=== PATIENT | male | born 1975 | race Hispanic/Latino ===

== ENCOUNTER 2019-11-02 14:16 | Emergency (ER) | payer OTHER ==
[~2019-11-02] VITALS: Ht 182.9 cm; Wt 88.5 kg
--- NOTE | 2019-11-16 14:03 | Emergency Department Note ---
History of Present Illnes History of Present Illness Chief Complaint: COVID PUI History of Present Illness This is a 44 year old male TATBISMARK SOB. WENT TO A RAPID TESTING CLINIC TODAY AND TOLD HE IS COVID POSITIVE. CAME HOME AND CALLED 911. STATES HE IS TOO DIZZY TO DRIVE. PT AAOX4. NO ACUTE DISTRESS NOTED AT TIME OF TRIAGE. SATS 98% ROOM AIR. 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 Any updates have been documented here. Past Medical History Recent Fever: No Clinical Suspicion of Infectio: No New/Unexplained Change in Ment: No Past Medical History: None Other Surgery: RIGHT HAND FINGER SX Social History Smoking Cessation: Never Smoker Counseling Performed: No Alcohol Use: Social Any Illegal Drug Use: No TB Exposure/Symptoms: No Physically hurt or threatened: No Other Last Tetanus: 7 YEARS AGO Review of Systems Review of Systems Constitutional: Reports as per HPI EENTM: Reports no symptoms Cardiovascular: Reports no symptoms Respiratory: Reports as per HPI Gastrointestinal: Reports no symptoms Genitourinary: Reports no symptoms Musculoskeletal: Reports no symptoms Integumentary: Reports no symptoms Neurological: Reports no symptoms Psychological: Reports no symptoms Endocrine: Reports no symptoms Hematological/Lymphatic: Reports no symptoms Physical Exam Related Data Allergies: Coded Allergies: No Known Allergies (Unverified , 12/31/14) Triage Vital Signs Vital Signs Date Time Temp Pulse Resp B/P (MAP) Pulse Ox O2 Delivery O2 Flow Rate FiO2 11/02/19 14:22 98.9 100 18 127/86 98 Room Air Vital signs reviewed: Yes Physical Exam CONSTITUTIONAL Constitutional: Present well-developed, Present well-nourished HENT HENT: Present normocephalic, Present atraumatic, Present oropharynx clear/moist, Present nose normal HENT L/R: Present left ext ear normal, Present right ext ear normal EYES Eyes: Reports PERRL, Reports conjunctivae normal NECK Neck: Present ROM normal PULMONARY Pulmonary: Present effort normal, Present breath sounds normal CARDIOVASCULAR Cardiovascular: Present regular rhythm, Present heart sounds normal, Present capillary refill normal, Present normal rate GASTROINTESTINAL Abdominal: Present soft, Present nontender, Present bowel sounds normal GENITOURINARY Genitourinary: Present exam deferred SKIN Skin: Present warm, Present dry MUSCULOSKELETAL Musculoskeletal: Present ROM normal NEUROLOGICAL Neurological: Present alert, Present oriented x 3, Present no gross motor or sensory deficits PSYCHOLOGICAL Psychological: Present mood/affect normal, Present judgement normal Assessment & Plan Medical Decision Making MDM covid19 with mormal vitals, normal O2 saturation Reassessment Reassessment dc home, self-quarantine, proning, f/u pcp, rted prn Assessment & Plan Final Impression: (1) COVID-19 Depart Disposition: HOME, SELF-CARE Last Vital Signs Date Time Temp Pulse Resp B/P (MAP) Pulse Ox O2 Delivery O2 Flow Rate FiO2 11/02/19 14:22 98.9 100 18 127/86 98 Room Air Home Meds No Active Prescriptions or Reported Meds CACHORRO MINOR MD Nov 16, 2019 14:03
== END 2019-11-02 17:02 | disposition home or self-care (01) ==
LOC: ER 14:25
DX: U07.1 COVID-19 (principal); R50.9 Fever, unspecified; R06.02 Shortness of breath; R05 Cough; R42 Dizziness and giddiness
CPT/HCPCS: 99282

== ENCOUNTER 2023-11-08 16:29 | Emergency (ER) | payer SELFPAY ==
[~2023-11-08] VITALS: Ht 182.9 cm; Wt 88.5 kg
[2023-11-08 16:37] VITALS: PULSE 78; RESP 18; TEMP 98.2
[2023-11-08 17:15] VITALS: BP 125/94; PULSE 71; RESP 18; O2SAT 97
== END 2023-11-08 17:15 | disposition home or self-care (01) ==
LOC: ER 16:33
DX: F41.9 Anxiety disorder, unspecified (principal); R20.2 Paresthesia of skin
CPT/HCPCS: 99282